=== PATIENT | female | born 1990 | race Caucasian/White ===

== ENCOUNTER 2017-05-15 08:45 | Outpatient (RCR) | payer BC ==
[~2017-05-15 08:45] MED LIST: AMOXICILLIN 8751 TAB PO; BENADRYL25 M2 PO; LEXAPRO 10MG10 MG PO; LORTAB 5/500 501 TAB PO; PAXIL PO; PRENATAL VITAMI1 T12 PO; SYNTHROID0.05 MG/TA PO
== END 2017-05-20 | disposition home or self-care (01) ==
LOC: WSPT
DX: M47.816 Spondylosis without myelopathy or radiculopathy, lumbar region (principal); M47.814 Spondylosis without myelopathy or radiculopathy, thoracic region; M79.1 Myalgia; G89.29 Other chronic pain
CPT/HCPCS: G0283-GP

== ENCOUNTER 2018-03-23 14:45 | Outpatient (RCR) | payer BC ==
[2018-04-11] MEDS ORDERED: EPA FISH OIL1 SGL PO (11:09)
[2018-04-14] MEDS ORDERED: IBU600 MG PO (08:37)
[2018-04-14] MEDS ORDERED: PERCOCET 325 MG1 TA2 PO (08:38)
== END 2018-04-20 08:01 | disposition home or self-care (01) ==
LOC: WSPT 14:45
DX: M54.42 Lumbago with sciatica, left side (principal); M54.41 Lumbago with sciatica, right side

== ENCOUNTER 2018-04-11 10:50 | Outpatient (CLI) | payer BC ==
[~2018-04-11] VITALS: Ht 154.9 cm; Wt 81.8 kg
[2018-04-11] MEDS ORDERED: EPA FISH OIL1 SGL PO (11:09)
[2018-04-11 11:10] VITALS: BP 119/67; PULSE 94; TEMP 98.6
[2018-04-11 11:20] VITALS: BP 119/67; PULSE 94; TEMP 98.6
== END 2018-04-11 11:40 | disposition home or self-care (01) ==
LOC: LDRO 10:50
DX: Z03.71 Encounter for suspected problem with amniotic cavity and membrane ruled out (principal); O99.333 Smoking (tobacco) complicating pregnancy, third trimester; F17.210 Nicotine dependence, cigarettes, uncomplicated; Z3A.39 39 weeks gestation of pregnancy

== ENCOUNTER 2018-04-12 12:07 | Inpatient (IN) | payer BC ==
[2018-04-12] VITALS (39 sets, daily range): BP systolic 107–140; BP diastolic 56–99; PULSE 79–109; TEMP 98–98.3
[~2018-04-12] VITALS: Ht 154.9 cm; Wt 81.8 kg
[~2018-04-12 12:07] MED LIST changes: +EPA FISH OIL1 SGL PO
--- NOTE | 2018-04-12 12:32 | NUR ---
1210 PT ARRIVES AMB FOR LABOR CHECK. GOWN ON AND TO ZHOU. ASSESSMENT STARTED. SVE SHOWS SIGNIFICANT CHANGE FROM YESTERDAY. 1220 DR SHAIKH INFORMED OF PT EXAM AND HX. ORDERS FOR ADMISSION. 1235 ASSESSMENT COMPLETED AND PLAN OF CARE DISCUSSED.
--- NOTE | 2018-04-12 12:50 | NUR ---
1250: Report from Yvan REHMAN to assume care of patient at this time. 1300: Dolly EMERSON at bedside for epidural placement. 1301: Lidocaine. 1302: Single Shot given by Dolly EMERSON, no adverse reactions noted. Epidural catheter placed. 1310: Patient repositioned to left tilt. Plan of care discussed. Questions answered. Call light within reach.
[2018-04-12 12:59] LABS: HEMOGLOBIN 10.8 g/dl (12.5-16.0); MEAN CELL VOLUME 79 fl (80.0-100.0); MEAN CORPUSCULAR HEMOGLOBIN 25 pg (27.0-31.0); MEAN CORPUSCULAR HGB CONC 32 g/dl (33.0-37.0); MEAN PLATELET VOLUME 10.9 fl (7.4-10.4); PLATELET COUNT 252 K/mm3 (130-400); RED BLOOD COUNT 4.28 M/mm3 (4.10-5.30); REDCELL DISTRIBUTION WIDTH-CV 15.2 % (11.5-14.5)
[2018-04-12 13:01] LABS: HEMATOCRIT 33.7 % (37.0-47.0)
--- NOTE | 2018-04-12 13:01 | NUR ---
1250 BEDSID REPORT TO Herlinda ULLOA RN AND CARE ASSUMED BY SAME. STAFF ASSISTANT NOTIFIED OF PT DESIRE FOR EPIDURAL PLACEMENT..
[2018-04-12 13:13] LABS: BAND 10 % (0-10); EOSINOPHIL 1 % (0-4); LYMPHOCYTE 9 % (20.0-51.0); NEUTROPHILS 75 % (42.0-75.2); PLATELET ESTIMATE NORMAL (NORMAL)
[2018-04-12 13:14] LABS: HYPOCHROMIA 1+; MICROCYTOSIS 1+
--- NOTE | 2018-04-12 13:30 | NUR ---
SVE /BBCARLOS, unable to feel presenting part through BOW. Connor catheter placed by this RN, clear yellow urine. Will notify .
--- NOTE | 2018-04-12 13:45 | NUR ---
at bedside. Vertex position verified with ultrasound. AROM at 1346, large amount of clear fluid noted. SVE 6/100/-2 per . Pericare performed. Plan of care discussed. Questions answered. Encouraged to rest and to notify RN with rectal pressure, urge to push, or pain. Call light within reach.
--- NOTE | 2018-04-12 15:15 | NUR ---
SVE 6-7/100/-2. Patient repositioned to left tilt, peanut ball in place. FHTs into 90s. Patient repositioned to right tilt, peanut ball in place. FHTs returning to baseline. Will continue to monitor.
--- NOTE | 2018-04-12 15:45 | NUR ---
Patient calls out reporting rectal pressure and increased pain. SVE 8/100/-1. Patient pushes epidural button. HOB elevated, peanut ball in place. Patient instructed to notify RN with increase in pain/pressure. Call light within reach.
--- NOTE | 2018-04-12 16:30 | NUR ---
SVE 7-8/100/-1 per this RN. HOB elevated to high fowlers. Will update and continue to monitor.
--- NOTE | 2018-04-12 17:00 | NUR ---
to bedside. SVE unchanged per provider. IUPC placed. Plan of care discussed. Questions answered. Call light within reach.
--- NOTE | 2018-04-12 17:15 | NUR ---
Pitocin started at 2mu/min per providers order. Patient denies questions or concerns. Comfortable with epidural.
--- NOTE | 2018-04-12 17:45 | NUR ---
Patient resting. Reports slight rectal pressure, denies pain or urge to push. Will continue to monitor. Call light within reach.
--- NOTE | 2018-04-12 18:00 | NUR ---
SVE 7-8/75/-2 per this RN, cervix swelling. Patient repositioned. Pitocin off per physician orders. Plan desires to proceed with section when OR available. Call light within reach.
--- NOTE | 2018-04-12 18:15 | NUR ---
at bedside discussing plan of care with patient and decision to proceed with a section. Questions answered. Report to Lisa RN to assume care of patient at this time.
[2018-04-13] VITALS: BP 114/51; PULSE 102
--- NOTE | 2018-04-13 05:20 | NUR ---
0520 PT C/O CRAMPING 8 OUT OF 10 ON PAIN SCALE. FF U/1 WITH NO VAG BLEEDING NOTED. LUNA PATENT. WARM BLANKETS TO ABD.
[2018-04-13 08:00] VITALS: BP 111/60; PULSE 94
[2018-04-13 08:45] LABS: BASO % 0.2 % (0.0-2.0); EOS % 0.2 % (0-4.0); GRAN # 13.4 (1.4-6.5); GRAN % 77.9 % (42.2-75.2); LYMPH # 2.5 (1.2-3.4); LYMPH % 14.4 % (20.0-51.0); MEAN CELL VOLUME 79 fl (80.0-100.0); MEAN CORPUSCULAR HGB CONC 32 g/dl (33.0-37.0); MONO # 1.1 (0.1-0.6); MONO % 6.1 % (1.7-9.3); PLATELET COUNT 195 K/mm3 (130-400); RED BLOOD COUNT 3.35 M/mm3 (4.10-5.30); REDCELL DISTRIBUTION WIDTH-CV 15.4 % (11.5-14.5)
[2018-04-13 08:57] LABS: HEMATOCRIT 26.6 % (37.0-47.0); HEMOGLOBIN 8.5 g/dl (12.5-16.0); MEAN CORPUSCULAR HEMOGLOBIN 25 pg (27.0-31.0)
[2018-04-13 16:44] VITALS: BP 98/57; PULSE 102
[2018-04-13 20:52] VITALS: BP 101/63; PULSE 106; TEMP 97.9
[2018-04-14 07:15] VITALS: BP 107/64; PULSE 83; TEMP 97.9
[2018-04-14] MEDS ORDERED: IBU600 MG PO (08:37)
[2018-04-14] MEDS ORDERED: PERCOCET 325 MG1 TA2 PO (08:38)
[2018-04-14 12:00] VITALS: BP 133/70; PULSE 97
== END 2018-04-14 15:45 | disposition home or self-care (01) | DRG 787 ==
LOC: LDRO 12:07 → LDR 12:24 → OB 23:11
PROVIDERS: Obstetrics & Gynecology; ADMIT Obstetrics & Gynecology
PROC: 10D00Z1 Extraction of Products of Conception, Low, Open Approach (ICD-10-PCS; principal; 2018-04-12)
DX: O62.1 Secondary uterine inertia (principal); O72.1 Other immediate postpartum hemorrhage; D62 Acute posthemorrhagic anemia; O76 Abnormality in fetal heart rate and rhythm complicating labor and delivery; Z3A.39 39 weeks gestation of pregnancy; Z37.0 Single live birth; O99.284 Endocrine, nutritional and metabolic diseases complicating childbirth; E03.9 Hypothyroidism, unspecified; O99.344 Other mental disorders complicating childbirth; F32.9 Major depressive disorder, single episode, unspecified; O99.02 Anemia complicating childbirth
CPT/HCPCS: J1580; J1885; J2270; J2405; J2590; J2795; J3010; J7120

== ENCOUNTER → 2018-04-21 | Outpatient (CLI) | payer BC ==
[~2018-04-21] MED LIST changes: +IBU600 MG PO; +PERCOCET 325 MG1 TA2 PO
--- NOTE | 2018-04-21 15:49 | NUR ---
Pt, Vonda Bojorquez, presents for outpatient consult with 9 day old baby boy, Tyler Bojorquez, because he has not been well, she struggled with engorgement, and she has been pumping and bottle feeding. Tyler was born on [birth year] by primary c/section for FTP. weight was 9# 5.2oz. At his appt with Dr. Mccann on 04/16/18 he weighed 8# 13oz. Pt has been working to bring Tyler back to the breast, in the last 24 hours he has breastfed 5 times, and bottle fed 7 times. His total intake from bottles in the last 24 hours was about 15oz. She is able to pump 3-5oz even after . Today Tyler weighs 9# 7.1oz. he has a little difficulty getting his bottom lip flanged out, but pt works to improve it. He has fed 11 times in the last 24 hours, and pt reports as many as 18 feedings in the previous day. Voids and stools are QS. After back and forth, each breast twice, Tyler has a weight gain of 2.1oz. He still acts hungry so he nurses a little longer while POC reviewed. Total gain is now 2.2oz, 60gm, but he still is fidgety and not completely content. LC observes that the tip of Tyler's tongue does indent. He can extend the tongue but seems to take a long time to transfer milk. Possible tongue tie discussed, but will re-evaluate in 2 days and see if he becomes more efficient before considering a referral. Her previous child also had difficulty and a "mild" tongue tie was noted with her when she was an infant as well. POC: Offer breast each feeding, consider providing 1oz EBM after to get more time between feedings, continue pumping PRN to have supplement. Follow up: consult in 2 days. Questions invited and answered.
== END ==
LOC: OLC 14:57
DX: Z39.1 Encounter for care and examination of lactating mother (principal); Z71.89 Other specified counseling

== ENCOUNTER → 2018-04-23 | Outpatient (CLI) | payer BC ==
--- NOTE | 2018-04-23 15:39 | NUR ---
Pt, Vonda Bojorquez, presents for follow up lacation consult with 11 day old baby boy, Tyler Bojorquez, to evaluate milk transfer. They were seen by this LC two days ago, trying to get Tyler to breastfeed and get away from EBM by bottles. Tyler was born on [birth year] and weighed 8# 5.2oz. Two days ago he weighed 9# 7.1oz. Vonda has suffered from back spasms so has continued with more bottle feeding than anticipated. She describes feedings being q 2-3 hours, generally getting 3oz EBM by bottle and then to the breast about 30 min after bottle feeding as he is still rooting. Vonda is now pumping 5-9oz at each feeding. Today Tyler weighs 9# 10.4oz for a gain of 3.4oz in the last 2 days. Tyler latches much better and remains on the first breast about 18 min, and the second for about 10 min. rather than switching back and forth between sides 4-5 times like at the previous consult. During the feeding time, this LC assist pt with more comfortable position to help with the back problems; she states her back feels better with feeding. After nursing he has a weight gain of 4.1oz (116 gms). Plan of care: Pt will likely continue doing mixed feedings but because she has seen such an improvement in the she will try to work in more time. She will continue with pumping to save milk for return to work. Follow up: As pt desires, discussed resources for weight checks in the community. Questions invited and answered.
== END ==
LOC: OLC 15:01
DX: Z39.1 Encounter for care and examination of lactating mother (principal); Z71.89 Other specified counseling

== ENCOUNTER 2018-09-16 12:06 | Outpatient (RCR) | payer BC | END 2018-11-10 09:12 | disposition home or self-care (01) | LOC: WSPT 12:06 | DX: R29.898 Other symptoms and signs involving the musculoskeletal system (principal); R53.1 Weakness ==

== ENCOUNTER → 2018-12-31 | Outpatient (CLI) | payer BC | LOC: COL.RAD 10:51 | DX: R10.11 Right upper quadrant pain (principal) ==

== ENCOUNTER 2019-02-01 12:15 | Emergency (ER) | payer BC ==
[~2019-02-01] VITALS: Ht 160 cm; Wt 61.4 kg
[2019-02-01 12:16] VITALS: TEMP 98
[2019-02-01 12:48] LABS: BASO # 0.1 (0.0-0.2); BASO % 1.4 % (0.0-2.0); EOS # 0.2 (0.0-0.7); EOS % 2.1 % (0-4.0); GRAN # 2.8 (1.4-6.5); GRAN % 38.8 % (42.2-75.2); HEMATOCRIT 47.1 % (37.0-47.0); HEMOGLOBIN 15.4 g/dl (12.5-16.0); LYMPH # 3.5 (1.2-3.4); LYMPH % 48.4 % (20.0-51.0); MEAN CELL VOLUME 84 fl (80.0-100.0); MEAN CORPUSCULAR HEMOGLOBIN 27 pg (27.0-31.0); MEAN CORPUSCULAR HGB CONC 33 g/dl (33.0-37.0); MEAN PLATELET VOLUME 10.7 fl (7.4-10.4); MONO # 0.7 (0.1-0.6); PLATELET COUNT 229 K/mm3 (130-400); RED BLOOD COUNT 5.62 M/mm3 (4.10-5.30); REDCELL DISTRIBUTION WIDTH-CV 13.6 % (11.5-14.5)
[2019-02-01 12:58] LABS: BILIRUBIN,TOTAL 0.2 mg/dL (0.0-1.0); CALCIUM 9.4 mg/dL (8.4-10.2); CREATININE, serum 0.79 (0.52-1.25); POTASSIUM 3.1 mmol/L (3.4-5.0)
[2019-02-01 13:14] LABS: PROLACTIN 34.9 ng/mL (3.0-18.6)
[2019-02-01 13:29] LABS: COLLECTION METHOD CLEAN CATCH
[2019-02-01] MEDS ORDERED: FLEXERIL 1010 MG/TAB PO (14:05)
[2019-02-01] MEDS ORDERED: ULTRAM 50MG TAB50 MG PO (14:05)
[2019-02-01 14:09] LABS: MUCOUS Present /lpf; PH 5 (5-8); URINE APPEARANCE Hazy; URINE BACTERIA None Seen /hpf; URINE BILIRUBIN Negative (NEGATIVE); URINE BLOOD Negative (NEGATIVE); URINE COLOR Yellow; URINE GLUCOSE Negative (NEGATIVE); URINE KETONE Negative (NEGATIVE); URINE LEUKOCYTE ESTERASE Negative (NEGATIVE); URINE NITRATE Negative (NEGATIVE); URINE PROTEIN(semi-quant) 1+ (NEGATIVE); URINE RBC 0-2 /hpf; URINE UROBILINOGEN Negative (NEGATIVE)
[2019-02-01 15:25] VITALS: BP 131/88; PULSE 97
== END 2019-02-01 15:25 | disposition home or self-care (01) ==
LOC: COL.ER 12:15
PROVIDERS: Emergency Medicine
DX: G40.909 Epilepsy, unspecified, not intractable, without status epilepticus (principal)
CPT/HCPCS: J2060; J2405; J7030